=== PATIENT | female | born 1970 | race Caucasian/White ===

== ENCOUNTER 2020-10-19 09:50 | Outpatient (CLI) | payer BC, SELFPAY ==
--- NOTE | ~2020-10-19 | MM_ITS ---
EXAMINATION: MM screening sahara BI w dieter HISTORY: Screening TECHNIQUE: Craniocaudal and mediolateral oblique 3-D tomosynthesis images were obtained and synthetic 2-D images were generated. CAD analysis was submitted and interpreted. COMPARISON: Comparison to multiple prior studies sequentially, with oldest reviewed study dated 06/24. BREAST PARENCHYMAL COMPOSITION: There are scattered areas of fibroglandular density. FINDINGS: There is no evidence of suspicious mass, calcification, or architectural distortion to sugg est malignancy in either breast. There has been no suspicious interval change. IMPRESSION: 1. No mammographic evidence of malignancy. 2. Recommend routine screening mammography in one year. BI-RADS Category 1: Negative Reviewed, dictated and finalized at location A. CLEANER
== END 2020-10-19 09:51 | disposition home or self-care (01) ==
LOC: ANHIMG 09:53
PROVIDERS: PCP Nurse Practitioner Family; Visit Provider Obstetrics & Gynecology Gynecology
DX: Z12.31 Encounter for screening mammogram for malignant neoplasm of breast (principal)
CPT/HCPCS: 77063; 77067

== ENCOUNTER → 2021-09-26 01:20 | Outpatient (CLI) | payer BC, SELFPAY ==
[2021-09-26 13:20] LABS: Influenza Control Positive
[2021-09-27 13:55] LABS: SARS-CoV-2 RNA PCR Negative
== END ==
LOC: ANHCOVIDDT 01:20
PROVIDERS: PCP Physician Assistant; Visit Provider Physician Assistant
DX: R09.89 Other specified symptoms and signs involving the circulatory and respiratory systems (principal); Z20.822 Contact with and (suspected) exposure to COVID-19
CPT/HCPCS: 87804; C9803; U0003; U0005

== ENCOUNTER 2021-11-08 15:37 | Outpatient (CLI) | payer BC, SELFPAY ==
--- NOTE | ~2021-11-08 | MM_ITS ---
EXAMINATION: MM screening sahara BI w dieter HISTORY: Screening TECHNIQUE: Craniocaudal and mediolateral oblique 3-D tomosynthesis images were obtained and synthetic 2-D images were generated. CAD analysis was submitted and interpreted. COMPARISON: Comparison to multiple prior studies sequentially, with oldest reviewed study dated 04/2015. BREAST PARENCHYMAL COMPOSITION: Breast composed of scattered areas of fibroglandular density. FINDINGS: The right breast is stable without evidence for malignancy. There is a mass in the upper ou ter quadrant of the left breast, middle third. IMPRESSION: 1. Mass in the upper outer quadrant of the left breast, middle third. 2. Additional mammographic views and possible breast ultrasound are recommended. BI-RADS Category 0: Incomplete: Needs additional imaging evaluation. Reviewed, dictated and finalized at location A. 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 Mass in the upper outer quadrant of the left breast, middle third. 2. Additional mammographic views and possible breast ultrasound are recommended . BI-RADS Category 0: Incomplete: Needs additional imaging evaluation.
== END 2021-11-08 15:38 | disposition home or self-care (01) ==
PROVIDERS: PCP Physician Assistant; Visit Provider Obstetrics & Gynecology Gynecology
DX: Z12.31 Encounter for screening mammogram for malignant neoplasm of breast (principal); R92.8 Other abnormal and inconclusive findings on diagnostic imaging of breast
CPT/HCPCS: 77063; 77067

== ENCOUNTER 2021-12-05 17:12 | Outpatient (CLI) | payer BC, SELFPAY ==
--- NOTE | ~2021-12-05 | XR_ITS ---
XR hand BI arthritis min 3V DATE: 12/05/2021 17:53 INDICATION: Polyarthralgia TECHNIQUE: 4 views of each COMPARISON: None FINDINGS: Status post left trapezium surgical resection. No fracture, dislocation, periosteal reaction or bone destruction, erosive change or chondrocalcinosi s in either hand is evident. There is mild osteophytic change at the right triscaphe and first carpometacarpal joints. There are m ild osteophytic changes at some of the interphalangeal joints, primarily at the right hand. 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
--- NOTE | ~2021-12-05 | XR_ITS ---
XR sacroiliac joints min 3V DATE: 12/05/2021 17:53 INDICATION: Chronic bilateral sacroiliac pain TECHNIQUE: AP and bilateral oblique views COMPARISON: None FINDINGS: No fracture or dislocation, erosive change, ankylosis. IMPRESSION: No significant abnormality Reviewed, dictated and finalized at Location A. Reviewed, dictated and finalized at location A. IMPRESSION: No significant abnormality
== END 2021-12-05 17:13 | disposition home or self-care (01) ==
LOC: ANHIMG 17:16
PROVIDERS: PCP Physician Assistant; Visit Provider Physician Assistant Medical
DX: M25.50 Pain in unspecified joint (principal); R53.83 Other fatigue; Z98.890 Other specified postprocedural states; M19.042 Primary osteoarthritis, left hand; M19.041 Primary osteoarthritis, right hand
CPT/HCPCS: 72202; 73130

== ENCOUNTER 2021-12-26 15:21 | Outpatient (CLI) | payer BC, SELFPAY ==
[2021-12-26 16:36] LABS: Iron 71 ug/dL (37-170)
[2021-12-26 16:47] LABS: Percent Iron Saturation 20 % (20-50)
[2021-12-26 17:58] LABS: Vitamin D 25 Hydroxy 47.2 ng/mL
== END 2021-12-26 15:22 | disposition home or self-care (01) ==
LOC: ANHLAB 15:23
PROVIDERS: PCP Physician Assistant; Visit Provider Internal Medicine Hematology & Oncology
DX: E83.110 Hereditary hemochromatosis (principal); M89.8X9 Other specified disorders of bone, unspecified site; E53.8 Deficiency of other specified B group vitamins; D80.9 Immunodeficiency with predominantly antibody defects, unspecified
CPT/HCPCS: 36415; 82306; 82607; 82728; 83540; 83550

== ENCOUNTER 2022-01-23 11:16 | Outpatient (CLI) | payer BC, SELFPAY ==
--- NOTE | ~2022-01-23 | XR_ITS ---
EXAMINATION:XR cervical spine 4-5V DATE: 01/23/2022 11:41 INDICATION: Neck pain TECHNIQUE: AP, lateral, lateral swimmers and odontoid views of the cervical spine are provided. COMPARISON: 11/15/2012 FINDINGS: Bone alignment is normal. There is chronic slight reversal of normal cervical lordosis. The odontoid is intact. No fracture is identified. The vertebral body heights are normal. There is mild loss of intervertebral disc space height at C5-6 and C6-7. Mild to moderate uncovertebral joint osteo arthritis is noted in the lower cervical spine. Prevertebral soft tissues are normal. IMPRESSION: 1. Mild cervical spondylosis without acute findings or significant interval change. Reviewed, dictated and finalized at location A. IMPRESSION: 1. Mild cervical spondylosis without acute findings or significant interval mai nge.
== END 2022-01-23 11:17 | disposition home or self-care (01) ==
PROVIDERS: PCP Physician Assistant; Visit Provider Physician Assistant
DX: M54.2 Cervicalgia (principal); M47.812 Spondylosis without myelopathy or radiculopathy, cervical region
CPT/HCPCS: 72050

== ENCOUNTER 2022-02-08 16:42 | Outpatient (CLI) | payer BC, SELFPAY ==
--- NOTE | ~2022-02-08 | MR_ITS ---
EXAMINATION: MR cervical spine wo con DATE: 02/08/2022 17:49 INDICATION: Cervicalgia TECHNIQUE: Magnetic resonance imaging (MRI) of the cervical spine was performed without intravenous c ontrast. Sequences included sagittal T2-weighted FSE, sagittal T2-weighted FS FSE, sagittal T1-weight ed FSE, axial MERGE and axial T2-weighted FSE. COMPARISON: Cervical spine radiographs dated 01/23/2022 FINDINGS: The evaluation mildly limited by motion artifact or blurring to some degree on all sequences. Bone al ignment is normal. Vertebral body heights are normal. Bone marrow signal intensity is normal. Mild disc height loss with annular fissure at C6-C7 Cord signal intensity is normal. Cervical soft tissues are unremarkable. The following disc levels are specifically discussed: C2-C3: Disc is mildly bulging. There is mild bilateral uncovertebral joint osteoarthritis. There is m ild left facet joint osteoarthritis. There is no neural foraminal stenosis. There is no central canal stenosis. C3-C4: Disc is mildly bulging. There is mild bilateral uncovertebral joint osteoarthritis. There is m ild left facet joint osteoarthritis. There is mild left neural foraminal stenosis. There is minimal c entral canal stenosis. C4-C5: Disc is bulging. There is mild bilateral uncovertebral joint osteoarthritis. There is mild rig ht and mild to moderate left facet joint osteoarthritis. There is mild right and mild to moderate lef t neural foraminal stenosis. There is mild central canal stenosis with mild flattening of the ventral surface of the cord. C5-C6: Disc is bulging. There is moderate bilateral uncovertebral joint osteoarthritis. There is mild to moderate bilateral facet joint osteoarthritis. There is mild right and moderate left neural nirmal inal stenosis. There is mild central canal stenosis with mild indentation of the right ventral surfac e of the cord. C6-C7: Posterior disc osteophyte complex with annular fissure. There is severe bilateral uncovertebra l joint osteoarthritis. There is moderate left and mild to moderate right facet joint osteoarthritis. There is moderate bilateral neural foraminal stenosis. There is mild to moderate central canal steno sis with indentation of the ventral surface of the cord. C7-T1: The disc does not extend beyond the endplate margin. There is no uncovertebral joint osteoarth ritis. There is moderate bilateral facet joint osteoarthritis. There is mild left neural foraminal st enosis. There is no central canal stenosis. IMPRESSION: 1. Mild to moderate cervical spondylosis. 2. Evaluation mildly limited by motion artifact or blurring to some degree on all sequences. Reviewed, dictated and finalized at location A. IMPRESSION: 1. Mild to moderate cervical spondylosis. 2. Evaluation mildly limited by motion artifact or blurring to some degree on a ll sequences.
== END 2022-02-08 16:43 | disposition home or self-care (01) ==
PROVIDERS: PCP Physician Assistant; Visit Provider Physician Assistant
DX: M47.813 Spondylosis without myelopathy or radiculopathy, cervicothoracic region (principal); M48.03 Spinal stenosis, cervicothoracic region
CPT/HCPCS: 72141

== ENCOUNTER 2022-03-04 08:56 | Outpatient (CLI) | payer BC, SELFPAY ==
--- NOTE | ~2022-03-04 | DEXA_ITS ---
Bone Density Report Name: GAIL CANCHOLA Age: 51 Sex: Female Ethnicity: White Date of : 1970 Indication: postmenopausal; screening for osteoporosis; height loss; asthma or emphysema; Referring Provider: JONES, NGUYỄN Study: Bone densitometry was performed. Exam Date: March 04, 2022 Accession number: [id number] Bone Density: Region BMD T-score Z-score Classification AP Spine(L1-L4) 0.747 -2.7 -1.9 Osteoporosis Femoral Neck (Left) 0.569 -2.5 -1.7 Osteoporosis Total Hip (Left) 0.765 -1.5 -0.9 Osteopenia Femoral Neck (Right) 0.644 -1.8 -1.0 Osteopenia Total Hip (Right) 0.843 -0.8 -0.3 Normal Total Hip Mean 0.804 -1.2 -0.6 Osteopenia World Health Organization criteria for BMD impression classify patients as: Normal (T-score at or above -1.0), Osteopenia (T-score between -1.0 and -2.5), or Osteoporosis (T-score at or below -2.5). 10-year Fracture Risk: FRAX not reported because: Some T-score for Spine Total or Hip Total or Femoral Neck at or below -2.5 Clinical Information Provided by Patient: Has used the following medications: Vitamin D, Calcium Has the following medical conditions: Asthma or Emphysema Patient maximum height was 62 Menopause Age: 46 Drinks caffeinated beverages Onset of menses at age 16 Number of children 2 Impression: The patient has osteoporosis, based on the Total Spine T-score. Discussion: INCREASED RISK OF FRACTURE. BONE DENSITY IS UNDESIRABLY LOW AT ONE OR MORE SKELETAL SITES, CONSISTENT WITH POSTMENOPAUSAL OSTEOPOROSIS. This patient's lowest T-score meets the World Health Organization's (WHO) criteria for osteoporosis at one or more sites (T-score -2.5 or below). In untreated patients, the risk of osteoporotic fracture increases approximately two-fold for each 1.0 SD decrease in T-score. Low bone density is not the only risk factor for fracture; also consider factors such as patient's age, frailty or poor health, risk of falling, risk of injury, previous osteoporotic fracture, family history of osteoporosis, cigarette smoking, low body weight, etc. Not everyone with low bone mineral density has osteoporosis; osteomalacia and other metabolic bone disorders should also be considered. Patients who have osteoporosis should be evaluated for specific diseases and conditions (secondary causes) that may cause or contribute to bone loss. The [place] [employer]ocrinologists (AACE) and National Osteoporosis Foundation (NOF) recommend pharmacologic intervention for all postmenopausal women whose T-score is in this range. The patient should follow a healthful lifestyle (good nutrition with adequate calcium and vitamin D, and appropriate weight-bearing exercise). Follow-Up: Consider a repeat BMD and Vertebral Fracture Assessment (VFA) exam in 2 years o
== END 2022-03-04 08:57 | disposition home or self-care (01) ==
PROVIDERS: PCP Physician Assistant; Visit Provider Nurse Practitioner
DX: Z78.0 Asymptomatic menopausal state (principal); M81.0 Age-related osteoporosis without current pathological fracture; M85.852 Other specified disorders of bone density and structure, left thigh; M85.851 Other specified disorders of bone density and structure, right thigh
CPT/HCPCS: 77080

== ENCOUNTER 2022-09-04 13:59 | Outpatient (CLI) | payer OTHER, SELFPAY ==
--- NOTE | ~2022-09-04 | CT_ITS ---
EXAMINATION:CT diagnostic chest w con DATE: 09/04/2022 14:33 INDICATION: Solitary pulmonary nodule. TECHNIQUE: Computed tomography (CT) of the chest was performed with 75 mL Omnipaque 350 intravenous c ontrast. Automated exposure control and iterative reconstruction technique were employed. The dose-le ngth product (DLP) was 264.84 mGy-cm. COMPARISON: CT abdomen and pelvis 02/06/2018 FINDINGS: There is mild emphysema. There is a stable 5 mm nodule in left lower lobe, likely benign. T here is an 8 mm part-solid nodule with 6 mm solid component at right lung apex. There are mild patchy groundglass opacities in the basilar lower lobes. There is a stable 5 mm nodule in right lower lobe, likely benign. There is a 4 mm nodule in right upper lobe. No pleural effusion. The heart size is no rmal. No pericardial effusion. There is diffuse hepatic steatosis. There is mild thoracic spondylosis . IMPRESSION: 1. Pulmonary nodules measuring up to 8 mm, probably benign. Noncontrast low-dose chest CT is recommen ded in 6 months. 2. Mild emphysema. Reviewed, dictated and finalized at location A. 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 Pulmonary nodules measuring up to 8 mm, probably benign. Noncontrast low-dos e chest CT is recommended in 6 months. 2. Mild emphysema.
[2022-09-04 14:18] LABS: Estimated Glomerular Filt Rate > 60
== END 2022-09-04 14:00 ==
LOC: MICIMG 14:01
PROVIDERS: PCP Nurse Practitioner Family; Visit Provider Nurse Practitioner Family
DX: R91.8 Other nonspecific abnormal finding of lung field (principal); J43.9 Emphysema, unspecified
CPT/HCPCS: 71260; Q9967

== ENCOUNTER 2023-02-01 09:12 | Outpatient (CLI) | payer OTHER, SELFPAY | END 2023-02-01 09:13 | disposition home or self-care (01) | LOC: ANHLAB 09:14 | PROVIDERS: PCP Nurse Practitioner Family; Visit Provider Internal Medicine Hematology & Oncology | DX: D51.9 Vitamin B12 deficiency anemia, unspecified (principal) | CPT/HCPCS: 36415; 82607 ==

== ENCOUNTER 2023-05-14 13:16 | Outpatient (CLI) | payer OTHER, SELFPAY ==
--- NOTE | ~2023-05-14 | XR_ITS ---
EXAMINATION: XR tibia fibula RT 2V DATE: 05/14/2023 13:40 INDICATION: Bilateral lower leg pain. TECHNIQUE: 1. AP and lateral views of the right tibia and fibula were obtained. 2. AP and lateral views of the left tibia and fibula were obtained. COMPARISON: None. FINDINGS: Normal alignment at the bilateral knees, ankles and visualized mid and hindfeet. No fractures. No per iosteal reaction or suspicious lytic or blastic bone lesions. Joint spaces appear relatively preserve d throughout the bilateral visualized lower legs. Soft tissues are unremarkable. No knee or ankle dameon nt effusions. IMPRESSION: 1. Negative bilateral lower leg radiographs. Reviewed, dictated and finalized at location A.
--- NOTE | ~2023-05-14 | XR_ITS ---
EXAMINATION: XR tibia fibula LT 2V DATE: 05/14/2023 13:40 INDICATION: Bilateral lower leg pain. TECHNIQUE: 1. AP and lateral views of the right tibia and fibula were obtained. 2. AP and lateral views of the left tibia and fibula were obtained. COMPARISON: None. FINDINGS: Normal alignment at the bilateral knees, ankles and visualized mid and hindfeet. No fractures. No per iosteal reaction or suspicious lytic or blastic bone lesions. Joint spaces appear relatively preserve d throughout the bilateral visualized lower legs. Soft tissues are unremarkable. No knee or ankle dameon nt effusions. IMPRESSION: 1. Negative bilateral lower leg radiographs. Reviewed, dictated and finalized at location A.
== END 2023-05-14 13:17 ==
LOC: MICIMG 13:18
PROVIDERS: PCP Nurse Practitioner Family; Visit Provider Nurse Practitioner Family
DX: M79.604 Pain in right leg (principal); M79.605 Pain in left leg
CPT/HCPCS: 73590

== ENCOUNTER 2024-07-16 10:49 | Outpatient (CLI) | payer OTHER, SELFPAY ==
--- NOTE | ~2024-07-16 | CT_ITS ---
EXAMINATION:CT diagnostic chest wo con DATE: 07/16/2024 11:35 INDICATION: Chest pain. Chest injury. Left rib injury. TECHNIQUE: Computed tomography (CT) of the chest was performed without intravenous contrast. Automate d exposure control and iterative reconstruction technique were employed. The dose-length product (DLP ) was 142.04 mGy-cm. COMPARISON: Chest CT 09/04/2022 FINDINGS: There is mild emphysema. There is a chronic 7 mm nodule at right lung apex, likely benign. There is a chronic 3 mm nodule in left lower lobe, likely benign. No pleural effusion. 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 The heart size is normal. No pericardial effusion. There are changes of cholecystectomy. There is mild thoracic spondylosis. There are fractures of anterior left fifth an d sixth ribs. IMPRESSION: 1. Fractures of left fifth and sixth ribs. 2. Mild emphysema. Reviewed, dictated and finalized at location A.
== END 2024-07-16 10:50 | disposition home or self-care (01) ==
LOC: MICIMG 10:50
DX: S22.42XA Multiple fractures of ribs, left side, initial encounter for closed fracture (principal); X58.XXXA Exposure to other specified factors, initial encounter; J43.9 Emphysema, unspecified
CPT/HCPCS: 71250